=== PATIENT | male | born 1945 | race Caucasian/White ===

== ENCOUNTER 2023-04-03 10:35 | Emergency (ER) | payer MEDICARE, SELFPAY ==
[2023-04-03 10:58] VITALS: BP 114/53; PULSE 93; RESP 18; TEMP 38.8; O2SAT 95
[2023-04-03 11:12] VITALS: TEMP 38.8
[2023-04-03] MEDS: ACETAMINOPHEN 500 MG TABLET 1000 MG PO (11:12)
[2023-04-03 11:34] VITALS: TEMP 38.7
--- NOTE | 2023-04-03 11:35 | ED.URI ---
HPI - URI/Sore Throat General Chief Complaint: Upper Respiratory Infection Stated Complaint: cough, chest congestion Time Seen by Provider: 04/03/23 11:00 Source: patient Mode of arrival: ambulatory Limitations: no limitations History of Present Illness HPI Narrative: 77-year-old male presents with with his with complaint of cough, sinus congestion/ pressure, fatigue, body aches, chills, postnasal drainage. Symptoms for 5 days. Taking hgly-ave-cawszor Mucinex without relief of symptoms. Was unaware that he had fever until he came to [facility]. Reports some intermittent shortness of breath with exertion. Denies nausea vomiting diarrhea. All systems reviewed and negative except as noted above. Related Data Home Medications Medication Instructions Recorded Confirmed Wellbutrin 04/03/23 amlodipine 10 mg tablet mg 04/03/23 atorvastatin 40 mg tablet mg 04/03/23 doxazosin 4 mg tablet mg 04/03/23 gabapentin 300 mg capsule mg 04/03/23 lisinopril 20 tablet 04/03/23 mg-hydrochlorothiazide 12.5 mg tablet Allergies Allergy/AdvReac Type Severity Reaction Status Date / Time Penicillins Allergy Rash Verified 04/03/23 10:56 povidone-iodine Allergy Rash Verified 04/03/23 10:56 [From Betadine] Sulfa (Sulfonamide AdvReac Other Verified 04/03/23 10:56 Antibiotics) Review of Systems Review of Systems: CONSTITUTIONAL: reports fever, chills, or sweats. EYES: Denies visual changes, redness, or discharge. ENT: reports rhinorrhea, congestion, sore throat. Denies otalgia. CARDIOVASCULAR: Denies chest pain, palpitations, or edema. RESPIRATORY: Reports cough and dyspnea with exertion. GASTROINTESTINAL: Denies abdominal pain, nausea, vomiting, or diarrhea. GENITOURINARY: Denies dysuria or hematuria. SKIN: Denies rash or itching. MUSCULOSKELETAL: Denies back pain, joint pain, or myalgia. NEUROLOGIC: Denies headache, numbness, or weakness. PSYCHIATRIC: Denies anxiety or depression. All other systems reviewed are negative, except as documented in HPI. PMFSH Comments At time of signature, agree with nursing past medical, surgical, social and family history. There is no relevant family history pertinent to the presenting complaint. Exam Narrative: GENERAL: This is a well-nourished, well-developed patient, in no apparent distress. HEAD: normocephalic, atraumatic. EYES: PERRL. Sclera clear/white. Vision is grossly intact. EARS: External ears normal, auditory canals clear and without drainage, fluid bilateral TMs without erythema or perforation. Hearing grossly intact. NOSE: External nose normal with purulent nasal drainage, erythema and with moderate congestion. Bilateral maxillary and frontal sinus tenderness on palpation. THROAT: Mucous membranes moist, Postnasal drainage with erythema and swelling. Noted exudates. NECK: Neck supple, non-tender without lymphadenopathy, masses or thyromegaly. CARDIOVASCULAR: Regular rate and rhythm without murmurs, gallops, or rubs. RESPIRATORY: Clear to auscultation. Breath sounds equal bilaterally. No wheezes, rales, or rhonchi. SKIN: warm, Dry, intact with no suspicious lesions or rash, good texture and turgor. NEURO: awake, alert, and oriented to person, place and time. There were no obvious focal neurologic abnormalities. EXTREMITIES: No joint tenderness, effusion, or edema noted. Course Course Level of Care: Express Care Visit Vital Signs Vital signs: Vital Signs Temperature 38.8 C H 04/03/23 10:58 Pulse Rate 93 04/03/23 10:58 Respiratory Rate 18 04/03/23 10:58 Blood Pressure 114/53 L 04/03/23 10:58 Pulse Oximetry 95 04/03/23 10:58 Oxygen Delivery Room Air 04/03/23 10:58 Temperature 38.8 C H 04/03/23 11:12 Pulse Rate 93 04/03/23 10:58 Respiratory Rate 18 04/03/23 10:58 Blood Pressure 114/53 L 04/03/23 10:58 Pulse Oximetry 95 04/03/23 10:58 Oxygen Delivery Room Air 04/03/23 10:58 Reviewed
== END 2023-04-03 11:34 | disposition home or self-care (01) ==
PROVIDERS: Emergency Provider Nurse Practitioner Family; PCP Hospitalist
DX: J01.90 Acute sinusitis, unspecified (principal); Z20.822 Contact with and (suspected) exposure to COVID-19; E78.00 Pure hypercholesterolemia, unspecified; I10 Essential (primary) hypertension; N40.0 Benign prostatic hyperplasia without lower urinary tract symptoms
CPT/HCPCS: 87081; 87426; 87804; 87880; 99213; A9270; C9803; G0463

== ENCOUNTER 2023-06-15 11:33 | Emergency (ER) | payer MEDICARE, SELFPAY ==
[2023-06-15 11:45] VITALS: BP 144/64; PULSE 68; RESP 16; TEMP 36.3; O2SAT 98
[2023-06-15 11:49] VITALS: BP 144/64; PULSE 68; RESP 16; TEMP 36.3; O2SAT 98
--- NOTE | 2023-06-19 09:05 | ED.URI ---
HPI - URI/Sore Throat General Chief Complaint: Upper Respiratory Infection Stated Complaint: cough,sinus/chest congestion Time Seen by Provider: 06/15/23 12:00 Source: patient Mode of arrival: ambulatory Limitations: no limitations History of Present Illness HPI Narrative: 77 yo M presents with c/o cough, congestion, sinus pressure, intermittent sinus headaches, drainage for 4 wks. has tried mucinex without relief of symptoms. Afebrile. No CP or SOB. All systems reviewed and negative except as noted above. Related Data Home Medications Medication Instructions Recorded Confirmed Wellbutrin 04/03/23 amlodipine 10 mg tablet mg 04/03/23 atorvastatin 40 mg tablet mg 04/03/23 doxazosin 4 mg tablet mg 04/03/23 lisinopril 20 tablet 04/03/23 mg-hydrochlorothiazide 12.5 mg tablet gabapentin 600 mg tablet 600 mg PO DAILY 06/15/23 06/15/23 Allergies Allergy/AdvReac Type Severity Reaction Status Date / Time Penicillins Allergy Rash Verified 06/15/23 11:45 povidone-iodine Allergy Rash Verified 06/15/23 11:45 [From Betadine] Sulfa (Sulfonamide AdvReac Other Verified 06/15/23 11:45 Antibiotics) Review of Systems Review of Systems: CONSTITUTIONAL: Denies fever, chills, or sweats. EYES: Denies visual changes, redness, or discharge. ENT: Reports rhinorrhea, congestion, sinus pressure, postnasal drainage. Denies sore throat, or otalgia. CARDIOVASCULAR: Denies chest pain, palpitations, or edema. RESPIRATORY: Reports cough. Denies dyspnea. GASTROINTESTINAL: Denies abdominal pain, nausea, vomiting, or diarrhea. GENITOURINARY: Denies dysuria or hematuria. SKIN: Denies rash or itching. MUSCULOSKELETAL: Denies back pain, joint pain, or myalgia. NEUROLOGIC: Denies headache, numbness, or weakness. PSYCHIATRIC: Denies anxiety or depression. All other systems reviewed are negative, except as documented in HPI. PMFSH Comments At time of signature, agree with nursing past medical, surgical, social and family history. There is no relevant family history pertinent to the presenting complaint. Exam Narrative: GENERAL: This is a well-nourished, well-developed patient, in no apparent distress. HEAD: normocephalic, atraumatic. EYES: PERRL. Sclera clear/white. Vision is grossly intact. EARS: External ears normal, auditory canals clear and without drainage, fluid to bilateral TMs without erythema or perforation. Hearing grossly intact. NOSE: External nose normal with purulent nasal drainage, erythema and swelling to bilateral nares. maxillary sinus tenderness on palpation. THROAT: Mucous membranes moist, PND with erythema NECK: Neck supple, non-tender without lymphadenopathy, masses or thyromegaly. CARDIOVASCULAR: Regular rate and rhythm without murmurs, gallops, or rubs. RESPIRATORY: Clear to auscultation. Breath sounds equal bilaterally. No wheezes, rales, or rhonchi. SKIN: warm, Dry, intact with no suspicious lesions or rash, good texture and turgor. NEURO: awake, alert, and oriented to person, place and time. There were no obvious focal neurologic abnormalities. EXTREMITIES: No joint tenderness, effusion, or edema noted. Course Course Level of Care: Express Care Visit Vital Signs Vital signs: Vital Signs Temperature 36.3 C L 06/15/23 11:45 Pulse Rate 68 06/15/23 11:45 Respiratory Rate 16 06/15/23 11:45 Blood Pressure 144/64 H 06/15/23 11:45 Pulse Oximetry 98 06/15/23 11:45 Oxygen Delivery Room Air 06/15/23 11:45 Temperature 36.3 C L 06/15/23 11:49 Pulse Rate 68 06/15/23 11:49 Respiratory Rate 16 06/15/23 11:49 Blood Pressure 144/64 H 06/15/23 11:49 Pulse Oximetry 98 06/15/23 11:49 Oxygen Delivery Room Air 06/15/23 11:49 reviewed MDM - URI/Sore Throat MDM Narrative Medical decision making narrative: Patient is aware of diagnosis, understands and agrees to treatment plan. Anticipatory guidance given. Patient agrees to follow-up as directed and is eliud
== END 2023-06-15 12:10 | disposition home or self-care (01) ==
PROVIDERS: Emergency Provider Nurse Practitioner Family; PCP Hospitalist
DX: J01.90 Acute sinusitis, unspecified (principal); E78.00 Pure hypercholesterolemia, unspecified; I10 Essential (primary) hypertension; N40.0 Benign prostatic hyperplasia without lower urinary tract symptoms
CPT/HCPCS: 99213; G0463

== ENCOUNTER 2023-11-28 09:25 | Emergency (ER) | payer MEDICARE, SELFPAY ==
[2023-11-28 09:47] VITALS: BP 109/60; PULSE 75; RESP 18; TEMP 36.7; O2SAT 98
--- NOTE | 2023-11-28 10:00 | ED.URI ---
HPI - URI/Sore Throat General Chief Complaint: Upper Respiratory Infection Stated Complaint: Chest and Sinus Congestion,Cough Time Seen by Provider: 11/28/23 10:00 Source: patient Mode of arrival: ambulatory Limitations: no limitations History of Present Illness HPI Narrative: 77-year-old male presents with complaint of sinus congestion, sinus pressure, postnasal drainage, sneezing and coughing for the past Two weeks. Afebrile. Patient reports history recurrent sinus infections. Has not seen an ENT specialist. Is not taking any antihistamines daily. Patient states drainage recently changed from yellow to green. All systems reviewed and negative except as noted above. Related Data Home Medications Medication Instructions Recorded Confirmed Wellbutrin 04/03/23 amlodipine 10 mg tablet mg 04/03/23 atorvastatin 40 mg tablet mg 04/03/23 doxazosin 4 mg tablet mg 04/03/23 lisinopril 20 tablet 04/03/23 mg-hydrochlorothiazide 12.5 mg tablet gabapentin 600 mg tablet 600 mg PO DAILY 06/15/23 06/15/23 Allergies Allergy/AdvReac Type Severity Reaction Status Date / Time Penicillins Allergy Rash Verified 11/28/23 09:26 povidone-iodine Allergy Rash Verified 11/28/23 09:26 [From Betadine] Sulfa (Sulfonamide AdvReac Other Verified 11/28/23 09:26 Antibiotics) Review of Systems Review of Systems: CONSTITUTIONAL: Denies fever, chills, or sweats. EYES: Denies visual changes, redness, or discharge. ENT: Reports rhinorrhea, congestion. Denies sore throat, or otalgia. CARDIOVASCULAR: Denies chest pain, palpitations, or edema. RESPIRATORY: reports cough. Denies dyspnea. GASTROINTESTINAL: Denies abdominal pain, nausea, vomiting, or diarrhea. GENITOURINARY: Denies dysuria or hematuria. SKIN: Denies rash or itching. MUSCULOSKELETAL: Denies back pain, joint pain, or myalgia. NEUROLOGIC: Denies headache, numbness, or weakness. PSYCHIATRIC: Denies anxiety or depression. All other systems reviewed are negative, except as documented in HPI. PMFSH Comments At time of signature, agree with nursing past medical, surgical, social and family history. There is no relevant family history pertinent to the presenting complaint. Exam Narrative: GENERAL: This is a well-nourished, well-developed patient, in no apparent distress. HEAD: normocephalic, atraumatic. EYES: PERRL. Sclera clear/white. Vision is grossly intact. EARS: External ears normal, auditory canals clear and without drainage, Fluid bilateral TMs without erythema or perforation. Hearing grossly intact. NOSE: External nose normal with erythema, swelling to bilateral nares, moderate congestion. You maxillary and frontal sinus tenderness Bilaterally THROAT: Mucous membranes moist, Erythema postnasal drainage. NECK: Neck supple, non-tender without lymphadenopathy, masses or thyromegaly. CARDIOVASCULAR: Regular rate and rhythm without murmurs, gallops, or rubs. RESPIRATORY: Clear to auscultation. Breath sounds equal bilaterally. No wheezes, rales, or rhonchi. SKIN: warm, Dry, intact with no suspicious lesions or rash, good texture and turgor. NEURO: awake, alert, and oriented to person, place and time. There were no obvious focal neurologic abnormalities. EXTREMITIES: No joint tenderness, effusion, or edema noted. Course Course Level of Care: Express Care Visit Vital Signs Vital signs: Vital Signs Temperature 36.7 C 11/28/23 09:47 Pulse Rate 75 11/28/23 09:47 Respiratory Rate 18 11/28/23 09:47 Blood Pressure 109/60 11/28/23 09:47 Pulse Oximetry 98 11/28/23 09:47 Oxygen Delivery Room Air 11/28/23 09:47 Temperature 36.7 C 11/28/23 09:47 Pulse Rate 75 11/28/23 09:47 Respiratory Rate 18 11/28/23 09:47 Blood Pressure 109/60 11/28/23 09:47 Pulse Oximetry 98 11/28/23 09:47 Oxygen Delivery Room Air 11/28/23 09:47 reviewed MDM - URI/Sore Throat MDM Narrative Medical decision making narra
== END 2023-11-28 10:18 | disposition home or self-care (01) ==
PROVIDERS: Emergency Provider Nurse Practitioner Family; PCP Hospitalist
DX: J01.90 Acute sinusitis, unspecified (principal); E78.00 Pure hypercholesterolemia, unspecified; I10 Essential (primary) hypertension; N40.0 Benign prostatic hyperplasia without lower urinary tract symptoms; M19.90 Unspecified osteoarthritis, unspecified site
CPT/HCPCS: 99213; G0463

== ENCOUNTER 2024-06-06 09:33 | Emergency (ER) | payer MEDICARE, SELFPAY ==
--- NOTE | ~2024-06-06 | XR_ITS ---
EXAMINATION: XR chest 2V DATE: 06/06/2024 09:57 INDICATION: Cough. TECHNIQUE: Frontal and lateral views of the chest were obtained. COMPARISON: None. FINDINGS: There is no pneumonia, pleural effusion, or pneumothorax. The heart size is normal. There a re old healed right rib fractures. IMPRESSION: 1. No acute cardiopulmonary disease. Reviewed, dictated and finalized at location A. ET ENGINEER
[2024-06-06 09:45] VITALS: BP 111/56; PULSE 64; RESP 16; TEMP 36.3; O2SAT 99
--- NOTE | 2024-06-06 09:48 | ED.URI ---
HPI - URI/Sore Throat General Chief Complaint: Upper Respiratory Infection Stated Complaint: Sinus/Cough Source: patient, RN notes reviewed and old records reviewed Mode of arrival: ambulatory Limitations: no limitations History of Present Illness HPI Narrative: Patient presents with complaints of 5 day history of cough that is worse at night. He denies any fever, chills, sweats. He denies any body aches. Denies any shortness of breath. Arrives in no distress. Has not been taking anything for his symptoms Related Data Home Medications ?Medication ?Instructions ?Recorded ?Confirmed ?Last Taken ?Type Wellbutrin 04/03/23 Unknown History amlodipine 10 mg tablet mg 04/03/23 Unknown History atorvastatin 40 mg tablet mg 04/03/23 Unknown History doxazosin 4 mg tablet mg 04/03/23 Unknown History lisinopril 20 tablet 04/03/23 Unknown History mg-hydrochlorothiazide 12.5 mg tablet gabapentin 600 mg tablet 600 mg PO DAILY 06/15/23 06/15/23 Unknown History dapagliflozin propanediol 10 mg mg 06/06/24 Unknown History tablet (Farxiga) doxycycline hyclate 100 mg capsule mg 06/06/24 Unknown History spironolactone 25 mg tablet mg 06/06/24 Unknown History trazodone 50 mg tablet mg 06/06/24 Unknown History Allergies Allergy/AdvReac Type Severity Reaction Status Date / Time Penicillins Allergy Rash Verified 06/06/24 09:41 povidone-iodine (From Allergy Rash Verified 06/06/24 09:41 Betadine) Sulfa (Sulfonamide AdvReac Other Verified 06/06/24 09:41 Antibiotics) Review of Systems Review of Systems: All systems reviewed & are unremarkable except as noted in HPI and below Constitutional: Constitutional: Reports no additional constitutional complaints ENT: Reports system reviewed and no additional complaints, except as documented Cardiovascular: Cardiovascular: Reports no additional cardiovascular complaints Respiratory: Respiratory: Reports no additional respiratory complaints, Reports chest congestion and Reports cough Gastrointestinal: Gastrointestinal: Reports no additional gastrointestinal complaints PMFSH Comments At the time of my signature, I reviewed and agree with the nursing past medical, surgical, social, and family history. There is no relevant family history pertinent to the patient complaint. Exam Const: General: cooperative, no acute distress, alert and awake Orientation/consciousness: oriented to person, oriented to place and oriented to time HENMT: Head: normal to inspection Mouth: Yes moist mucous membranes Resp: Effort & Inspection: normal respiratory effort and able to speak in complete sentences Auscultation: clear to auscultation bilaterally, no crackles, no rales, no rhonchi and no wheezes Cardio: Palpation: normal PMI Rate: regular rate Rhythm: regular rhythm Heart sounds: S1 normal heart sound present and S2 normal heart sound present Neuro: General: oriented to person, oriented to place and oriented to time Cranial nerves: Yes CN's II-XII intact bilaterally Psych: Appearance: grossly normal Thought process: Normal thought process present Insight: Good insight present (Psych) Judgement: Good judgement present (Psych) Course Course Level of Care: Express Care Visit Vital Signs Vital signs: Reviewed MDM - URI/Sore Throat MDM Narrative Medical decision making narrative: Reassuring physical exam, negative flu, negative COVID, chest x-ray without acute findings. Patient is nontoxic appearing, stable for discharge home with steroids and bronchodilators to treat bronchitis. Discharge instructions reviewed with patient, as well as provided in writing per nursing staff. The instructions also include specific and strict return/GO TO THE ER as well as f/u information. All questions have been answered, and the patient deny any further questions with discharge and discharge plan. Some parts of this dictation were generated by voice recognition software and may contain typographical and/or grammatical inaccuracies. Differential Diagnosis Differential diagnosis: Likely sinusitis, viral infection, bronchitis, influenza and pharyngitis Medical Records Attestation: I reviewed the patient's medical records. Lab Data Attestation: I reviewed the patient's lab results. Imaging Data My impression: No acute finding Radiologist's impression: [facility] [address] [place] [address] XRay Report Signed Patient: Jeremy Engel : 1945 MR#: [id number] Age: 78 Acct:[id number] Loc: [facility] ADM Date: 06/06/24Attending Dr: Ordering Physician: Samantha Collazo FNP Date of Service: 06/06/24 Procedure(s): XR chest 2V Accession Number(s): [id number] cc: Samantha Collazo FNP; Deborah, Donaldo Dupree Jr., MD~ EXAMINATION: XR chest 2V DATE: 06/06/2024 09:57 INDICATION: Cough. TECHNIQUE: Frontal and lateral views of the chest were obtained. COMPARISON: None. FINDINGS: There is no pneumonia, pleural effusion, or pneumothorax. The heart size is normal. There are old healed right rib fractures. IMPRESSION: 1. No acute cardiopulmonary disease. Reviewed, dictated and finalized at location A. KET CUTTING MACHINE OPERATOR Dictated By: Sameer Alatorre MD 06/06/24957 Signed By: <Electronically signed by Sameer Alatorre MD in OV> 06/06/24 0959 Discharge Plan Discharge Clinical Impression: Acute bronchitis Qualifiers: Bronchitis organism: unspecified organism Qualified Code(s): J20.9 - Acute bronchitis, unspecified Patient Disposition: Home, Self-Care Condition: Stable Instructions: Antibiotic Form, Acute Bronchitis (ED) Additional Instructions: Take medications as prescribed. Follow-up with primary care provider. Emergency department for new or worse symptoms Patient Language: Hebrew Prescriptions: New prednisone 50 mg tablet 50 mg PO DAILY Qty: 5 0RF albuterol sulfate [Ventolin HFA] 90 mcg/actuation HFA aerosol inhaler 2 puff inhalation QID PRN (Reason: shortness of breath or wheezing) Qty: 8.5 0RF No Action loratadine [Claritin] 10 mg tablet 10 mg PO DAILY Qty: 30 0RF atorvastatin 40 mg tablet lisinopril-hydrochlorothiazide 20-12.5 mg tablet amlodipine 10 mg tablet doxazosin 4 mg tablet Wellbutrin gabapentin 600 mg tablet 600 mg PO DAILY dapagliflozin propanediol [Farxiga] 10 mg tablet doxycycline hyclate 100 mg capsule trazodone 50 mg tablet spironolactone 25 mg tablet Follow-up/Referrals: Deborah,Donaldo Dupree Jr., MD [Primary Care Provider] - 1 Week Time of Disposition: 10:24
== END 2024-06-06 10:30 | disposition home or self-care (01) ==
PROVIDERS: Emergency Provider Nurse Practitioner Family; PCP Hospitalist
DX: J20.9 Acute bronchitis, unspecified (principal); I10 Essential (primary) hypertension; E78.00 Pure hypercholesterolemia, unspecified; N40.0 Benign prostatic hyperplasia without lower urinary tract symptoms; M19.90 Unspecified osteoarthritis, unspecified site
CPT/HCPCS: 71046; 99213; G0463

== ENCOUNTER 2025-04-12 08:02 | Emergency (ER) | payer MEDICARE, SELFPAY ==
[2025-04-12 08:11] VITALS: BP 140/65; PULSE 75; RESP 16; TEMP 36.8; O2SAT 99
--- NOTE | 2025-04-12 08:13 | ED_ITS ---
HPI - Dental/Oral General Chief complaint: Dental/Oral Stated complaint: pain in mouth Time Seen by Provider: 04/12/25 08:13 Source: patient Mode of arrival: ambulatory History of Present Illness HPI Narrative: 79 yo M presents with pain and swelling to mouth for about 6 days. Saw dentist yesterday and given antibiotic mouth rinse. Pt has had decaying front teeth for long time. Wears a mouth peice. Was told by dentist that teeth were not causing infection. All systems reviewed and negative except as noted above. Related Data Home Medications ?Medication ?Instructions ?Recorded ?Confirmed ?Last Taken ?Type Wellbutrin 04/03/23 Unknown History amlodipine 10 mg tablet mg 04/03/23 Unknown History atorvastatin 40 mg tablet mg 04/03/23 Unknown History doxazosin 4 mg tablet mg 04/03/23 Unknown History lisinopril 20 tablet 04/03/23 Unknown His tory mg-hydrochlorothiazide 12.5 mg tablet gabapentin 600 mg tablet 600 mg PO DAILY 06/15/2301/29 Unknown History dapagliflozin propanediol 10 mg mg 06/06/24 Unknown H istory tablet (Farxiga) doxycycline hyclate 100 mg capsule mg 06/06/24 Unknow n History spironolactone 25 mg tablet mg 06/06/24 Unknown Histo ry trazodone 50 mg tablet mg 06/06/24 Unknown History Allergies Allergy/AdvReac Type Severity Reaction Status Date / Time Penicillins Allergy Rash Verified 04/12/25 08:10 povidone-iodine (From Allergy Rash Verified 04/12/25 08:10 Betadine) Sulfa (Sulfonamide AdvReac Other Verified 04/12/25 08:10 Antibiotics) PMFSH Comments At time of signature, agree with nursing past medical, surgical, social and family history. There is no relevant family history pertinent to the presenting complaint. Exam Narrative: GENERAL: This is a well-nourished, well-developed patient, in no apparent distress. HEAD: normocephalic, atraumatic. EYES: PERRL. Sclera clear/white. Vision is grossly intact. EARS: External ears normal NOSE: External nose normal MOUTH: dental abscess near upper frenulum, draining. pts front top teeth are decayed, almost broken down to gumline NECK: Neck supple, non-tender without lymphadenopathy, masses or thyromegaly. CARDIOVASCULAR: Regular rate and rhythm without murmurs, gallops, or rubs. RESPIRATORY: Clear to auscultation. Breath sounds equal bilaterally. No wheezes, rales, or rhonchi. SKIN: warm, Dry, intact with no suspicious lesions or rash, good texture and turgor. NEURO: awake, alert, and oriented to person, place and time. There were no obvious focal neurologic abnormalities. EXTREMITIES: No joint tenderness, effusion, or edema noted. Course Course Level of Care: Express Care Visit Vital Signs Vital signs: Vital Signs Temperature 36.8 C 04/12/25 08:11 Pulse Rate 75 04/12/25 08:11 Respiratory Rate 16 04/12/25 08:11 Blood Pressure 140/65 04/12/25 08:11 Pulse Oximetry 99 04/12/25 08:11 Oxygen Delivery Room Air 04/12/25 08:11 Temperature 36.8 C 04/12/25 08:11 Pulse Rate 75 04/12/25 08:11 Respiratory Rate 16 04/12/25 08:11 Blood Pressure 140/65 04/12/25 08:11 Pulse Oximetry 99 04/12/25 08:11 Oxygen Delivery Room Air 04/12/25 08:11 reviewed MDM - Dental/Oral MDM Narrative Medical decision making narrative: pt given abx for dental abscess. Recommend follow up with dentist. pt is well appearing, nontoxic Discharge Plan Discharge Clinical Impression: Dental abscess Patient Disposition: Home Condition: Stable Instructions: Antibiotic Form, Dental Abscess (ED) Additional Instructions: Take antibiotics as prescribed until gone. Take with full glass of water. Do not take right before laying down for bed. Take tylenol every 6 to 8 hours as needed for pain. Follow up with dentist if not improving. Patient Language: Guamanian Prescriptions: New clindamycin HCl [Cleocin HCl] 300 mg capsule 300 mg PO Q6H 10 Days Qty: 40 0RF lidocaine HCl [Lidocaine Viscous] 2 % solution 1 applic mucous membrane Q4-6H PRN (Reason: pain) Qty: 100 0RF Rx Instructions: apply sparingly to painful tooth/gums No Action loratadine [Claritin] 10 mg tablet 10 mg PO DAILY Qty: 30 0RF atorvastatin 40 mg tablet lisinopril-hydrochlorothiazide 20-12.5 mg tablet amlodipine 10 mg tablet doxazosin 4 mg tablet Wellbutrin gabapentin 600 mg tablet 600 mg PO DAILY dapagliflozin propanediol [Farxiga] 10 mg tablet doxycycline hyclate 100 mg capsule trazodone 50 mg tablet spironolactone 25 mg tablet prednisone 50 mg tablet 50 mg PO DAILY Qty: 5 0RF albuterol sulfate [Ventolin HFA] 90 mcg/actuation HFA aerosol inhaler 2 puff inhalation QID PRN (Reason: shortness of breath or wheezing) Qty: 8.5 0RF Follow-up/Referrals: Deborah,Donaldo Dupree Jr., MD [Primary Care Provider, Unknown] Time of Disposition: 08:26
== END 2025-04-12 08:36 | disposition home or self-care (01) ==
PROVIDERS: Emergency Provider Nurse Practitioner Family; PCP Hospitalist
DX: K04.7 Periapical abscess without sinus (principal)
CPT/HCPCS: 99213; G0463